=== PATIENT | male | born 1970 | race Caucasian/White ===

== ENCOUNTER 2024-11-02 22:59 | Inpatient (IN) | payer OTHER, SELFPAY ==
[2024-11-02 18:48] VITALS: BP 134/98
[2024-11-02 19:05] LABS: Urine Albumin 2+ (Neg - Trace); Urine Bilirubin Negative (Negative); Urine Character Slightly Cloudy (Clear); Urine Color Amber; Urine Glucose Negative (Negative); Urine Ketone Negative (Negative); Urine Leukocyte 1+ (Negative); Urine Nitrite Negative (Negative); Urine Occult Blood 4+ (Negative); Urine Urobilinogen Negative (Neg - 1+)
[2024-11-02 19:15] LABS: Urine Red Blood Cell >100 /HPF (0-2); Urine Squamous Cell None seen /LPF (Few)
[2024-11-02 19:23] VITALS: BMI 27.4
[2024-11-02 19:44] LABS: % Basophils 0.2 % (0-2); % Eosinophils 0.4 % (0-6); % Immature Granulocytes 0.4 % (0-0.5); % Lymphocytes 16.7 % (20.5-51.1); % Monocytes 6.7 % (1.7-9.3); % Neutrophils 75.6 % (42.2-75.2); Absolute Eosinophils 0.1 10^3/uL (0-0.7); Absolute Immature Granulocytes 0.1 10^3/uL (0-0.05); Absolute Lymphocytes 2.7 10^3/uL (1.2-3.4); Absolute Monocytes 1.1 10^3/uL (0.1-0.6); Absolute Neutrophils 12.2 10^3/uL (1.4-6.5); Hematocrit 39.9 % (39.0-52.0); Hemoglobin 14.2 g/dL (13.0-18.0); Mean Corp Hgb Conc. 35.6 g/dL (33.0-37.0); Mean Corpuscular Hgb 30.5 pg (27.0-31.0); Mean Corpuscular Volume 85.6 fL (80.0-94.0); Mean Platelet Volume 8.9 fL (7.4-10.4); Nucleated Red Blood Cells % 0 % (-); Platelet Count 310 10^3/uL (130-400); Red Blood Cell Count 4.66 10^6/uL (4.70-6.10); Red Cell Dist. Width 12.4 % (11.5-14.5); White Blood Cell Count 16.2 10^3/uL (4.8-10.8)
--- NOTE | 2024-11-02 19:49 | ED.GENMED ---
History of Present Illness
General
Chief Complaint: Flank Pain
Source: patient
Exam Limitations: none
Time Seen by Provider: 11/02/24 19:38
Nursing documentation reviewed up to this point in time: agreed with
History of Present Illness
History of Present Illness:
54-year-old male with past medical history of renal stones presents emergency department today with concerns of left-sided flank pain that started yesterday. Patient reports that this for started, he thought nothing of it and took some Tylenol and
used it this did not help with the pain. Patient reports that he had a [employer] cheeseburger and started to feel nauseous and had some vomiting. He went to bed that night and then woke up with more severe left-sided flank pain. He has any
hematuria. Denies any dysuria. He denies any fevers or chills. He states that he has had kidney since the past but states this feels different. He currently does not follow with a urologist. He denies any intra-abdominal surgeries.
Review of Systems
Review of Systems
All Other Systems: ROS reviewed and negative except as documented in HPI and ROS
Phy Exam
Physical Exam
Physical Exam:
General: Patient is well appearing and in no acute distress; non-toxic
Skin: Warm and dry, no rashes or lesions
Head: Normocephalic, atraumatic
Eyes: Sclera non-icteric. EOMs intact.
Cardiac: Regular rate and rhythm, no murmurs
Peripheral Vascular: No lower extremity swelling or edema
Pulm: Normal respiratory effort, no wheezes, rales, rhonchi
Abdomen: Left-sided abdominal tenderness and left CVA tenderness noted, no rebound tenderness, no guarding
Neuro: CN II-XII intact, no focal neurologic deficits.
Psychiatric: Appropriate mood and affect.
Course
Orders/Labs/Results
Orders:
Orders
11/02/24 18:55
Urinalysis Reflex To Culture Urgent
Date Specimen was Collected: 11/02/24
Time Specimen was Collected: 18:51
Urine Microscopic Reflex Cult Urgent
Urine Culture Urgent
ERNST Source: U
Specimen Description:
Date Specimen was Collected: 11/02/24
Time Specimen was Collected: 18:51
11/02/24 19:36
Complete Blood Count/With Diff Urgent
Comprehensive Metabolic Panel Urgent
11/02/24 19:56
CT Abd/pel Without Iv Or Oral Urgent
Comment:
Reason For Exam: left flank pain/abdominal pain
0.9% Sodium Chloride 1000 ml [Nss] 1,000 ml IV BOLUS
Ketorolac [Toradol] 15 mg IV NOW STA
Ondansetron Injectable [Zofran] 4 mg IV NOW STA
11/02/24 22:48
Admit/Transfer Patient As Directed
Co-Sign Provider:
Level of Care: Inpatient admission
Assign to:: Medical/Surgical
Physician / Group: Stephen Monge
Diagnosis: left ureteral calculus, right ureteral calculus, moderate left hydrouretero
Reason for Hospitalization: left ureteral calculus, right ureteral calculus, moderate left hydrouretero
Expected length of stay greater than two midnights?: Yes
ELOS- Estimated Length of Stay in days: 3
I certify the patient meets the requirements for IP care: Yes
PRN Pain Medication Management As Directed
May give lesser potent ordered pain med per pt: Yes
preference::
Protocol:: Medication orders for pain may be administered in a
manner that supports deferring to patient preference
when the pt is:
- Requesting an ordered lesser potent pain medication.
Least to most potent pain medications are defined
as: acetaminophen < NSAID < tramadol < opioids
(morphine, oxycodone, hydromorphone).
- Requesting a lesser dose of the same medication IF
ORDERED.
- Requesting a less intrusive route of administration
if both routes are prescribed by the provider (PO <
IV).
11/02/24 22:49
Code Status As Directed
Resuscitation Status: Full Code
11/02/24 23:00
Flush (0.9% Sodium Chloride) [Flush (Nss)] See Dose Instructions IV PER PROTOCOL
11/03/24 00:39
0.9% Sodium Chloride 1000 ml [Nss] 1,000 ml IV 125 mls/hr
Acetaminophen [Tylenol] 650 mg PO Q4HPRN PRN
HYDROmorphone [Dilaudid] 0.5 mg IV Q2HPRN PRN
Ondansetron Injectable [Zofran] 4 mg IV Q6HPRN PRN
Oxycodone/Acetaminophen [Percocet 5/325] 1 tablet PO Q4HPRN PRN
Oxycodone/Acetaminophen [Percocet 5/325] 2 tablet PO Q4HPRN PRN
11/03/24 00:39
UROLOGY CONSULT Routine
Consulting Provider: Salazar Shah
Was physician already notified: Yes
Activity As Directed
Activity Level: As Tolerated
Intake/ Output As Directed
Frequency: Per unit guidelines
Okay to Shower As Directed
Pneumatic Compression Sleeves As Directed
Type: Thigh high
Strain Urine As Directed
Vital Signs As Directed
Frequency: Per unit guidelines
DX Deep Vein Thrombosis Video Routine
11/03/24 Breakfast
NPO
Allow oral meds: Yes
Allow clear liquids: 4hrs prior to procedure
Comment: may have unrestricted clear liquid up to 4 hrs prior to scheduled procedure
Basic Metabolic Panel IN AM
Complete Blood Count/No Diff IN AM
11/03/24 Dinner
Regular
11/03/24 22:00
Tamsulosin [Flomax] 0.4 mg PO HS
Abnormal Lab Results
11/02/24 11/02/24
18:55 19:36
WBC 16.2 H 10^3/uL
(4.8-10.8)
RBC 4.66 L 10^6/uL
(4.70-6.10)
Abs Immat Gran (auto) 0.1 H 10^3/uL
(0-0.05)
Absolute Neuts (auto) 12.2 H 10^3/uL
(1.4-6.5)
Absolute Monos (auto) 1.1 H 10^3/uL
(0.1-0.6)
Neutrophils % 75.6 H %
(42.2-75.2)
Lymphocytes % 16.7 L %
(20.5-51.1)
Glucose 111 H mg/dl
(70-99)
Total Protein 8.7 H g/dl
(6.3-8.2)
Ur Occult Blood Reflex 4+ A
(Negative)
Leukocyte Esterase Rfl 1+ A
(Negative)
Urine RBC >100 A /HPF
(0-2)
Urine Albumin (Reflex) 2+ A
(Neg - Trace)
11/02/24 19:36
11/02/24 19:36
Vital Signs
Initial and Last Documented VS:
Initial Vital Signs
Temp Pulse Resp BP Pulse Ox
97.8 F 93 16 134/98 99
11/02/24 18:48 11/02/24 18:48 11/02/24 18:48 11/02/24 18:48 11/02/24 18:48
Last Documented Vital Signs
Temp Pulse Resp BP Pulse Ox
97.8 F 93 16 121/78 94
11/02/24 18:48 11/02/24 18:48 11/02/24 18:48 11/03/24 00:00 11/03/24 00:00
MDM/Problems Addressed
Differential Diagnosis Includes:
Differentials include nephrolithiasis, diverticulitis, aortic aneurysm, pyelonephritis
MDM/Problems Addressed:
54-year-old male presents emergency department today with concerns of left flank pain. He was found to have a 9 mm stone in the mid urethra with moderate hydronephrosis. No evidence of CASSANDRA. No evidence of UTI. Reviewed case with urologist
on-call. Because CT scan also notes a stone on the right proximal ureter, patient is not a good candidate for trial of outpatient passage as patient may become anuric should the right side obstructed as an outpatient as well. Patient will be
referred for admission. No indication for IV antibiotics at this time. Case discussed with attending ER physician.
*Pulse Oximetry
Patient hypoxic: no
*Critical Care Note
Total Time (30-74mins, 75-104mins- exclusive of procedures): Not Applicable
Data Reviewed
Review of Other/Old Records Reveals: Records (Reviewed [facility], no previous ER segmentation or discharge summaries in [facility] to review)
ED Attending Note
-
Portions of this chart may have been created with voice recognition software.� Occasional wrong word or��sound alike� substitutions may have occurred due to the inherent limitations of voice recognition software.
Discharge Plan
Departure
Patient Disposition: Admit
Date of Disposition: 11/02/24
Time of Disposition: 22:12
Admit to: Med/Surg
Presentation/result/management discussed w/ accepting MD/DO: Hospitalist
Patient with high blood pressure during this ER visit?: Yes
Condition: Good
Discharge Problem:
Left ureteral calculus
Interventions
Interventions:
*Risk Screen - Suicide Last Done: 11/02/24 19:23
*General Assessment Last Done: 11/02/24 19:23
*Neglect/Abuse Screening Last Done: 11/02/24 19:23
*ED- Fall Risk Assessment Last Done: 11/02/24 19:23
*ED COVID-19 Vaccine History Last Done: 11/02/24 19:23
XD-Uhctff-Dmrfmvdggm Assessment Last Done: 11/02/24 19:23
ED-Male Genitourinary Assessment Last Done: 11/02/24 19:23
[2024-11-02 20:00] VITALS: BP 136/93
[2024-11-02] MEDS: NSS 1000 IV (20:18)
[2024-11-02] MEDS: TORADOL 15 MG IV (20:18)
[2024-11-02] MEDS: ZOFRAN 4 MG IV (20:19)
[2024-11-02 20:46] LABS: ALT (SGPT) 31 U/L (0-50); AST (SGOT) 25 U/L (17-59); Albumin 4.9 g/dl (3.5-5.0); Alkaline Phosphatase 80 U/L (38-126); Blood Urea Nitrogen 15 mg/dl (9-20); Calcium 9.6 mg/dl (8.4-10.2); Carbon Dioxide 23 mmol/L (22-30); Chloride 105 mmol/L (98-107); Estimated Creatinine Clearance 74 ml/min; Glucose 111 mg/dl (70-99); Potassium 4.4 mmol/L (3.5-5.1); Sodium 141 mmol/L (135-145); Total Bilirubin 0.7 mg/dl (0.2-1.3); Total Protein 8.7 g/dl (6.3-8.2); eGFR > 60.00
[2024-11-02 21:58] VITALS: BP 116/81
[2024-11-02 22:00] VITALS: BP 120/82
--- NOTE | 2024-11-02 22:26 | HPS.HSE ---
Addendum entered and electronically signed by Stephen Monge DO 11/02/24 23:42:
Patient seen and examined independently. Agree with findings and plan as set forth by MARGO Holt.
Patient is a 54y M with [facility] significant fro prior kidney stones (remote past) who presents to ED complaining of L flank pain with N/V. Symptoms started yesterday afternoon. No fevers / chills. No dysuria. Evaluation in the ED reveals
bilateral ureteral stones - L > R with hydro on the L.
Ass:
Bilateral Ureteral Stones
Left Hydronephrosis secondary to the above
Plan:
Admit for further evaluation and treatment.
NPO, IVFs, pain control and antiemetics.
Strain urine. Tamsulosin.
Urology evaluation in AM for possible intervention.
Original Note:
Family Physician
-
Family Physician: * NONE
Chief Complaint
-
left flank pain
History of Present Illness
Patient is a 54-year-old male with past medical history significant for kidney stones who presented to [facility] ED for evaluation of left flank pain x2 days associated with vomiting. Patient reports he started with left flank pain described as sharp
yesterday, 11/01/2024, and has been consistent since. He reports an episode of emesis prior to ED arrival. Patient also reports increased frequency in urination, no dysuria. He stated he has history of kidney stones in the past. Denies any fever,
chills, cough, shortness of breath, nausea, constipation or diarrhea.
Medical History
Past Medical History
Past Medical History: Reports Other
Additional Past Medical History:
kidney stones
Past Surgical History: Reports None
Social History
Tobacco: Former Smoker
Alcohol: Occasional
Drug: None
Family History
Family History: Not pertinent
Allergies / Home Medications
Allergies reflects when Allergies were last updated in [employer].
Home Medications with original date entered in [employer]
Allergy/Medication List:
Allergies
Allergy/AdvReac Type Severity Reaction Status Date / Time
No Known Allergies Allergy Unverified 11/02/24 18:48
Review of Systems
-
History Source: Patient
Constitutional: Reports No Symptoms
EENT: Reports No Symptoms
Respiratory: Reports No Symptoms
Cardiac: Reports No Symptoms
Abdomen/GI: Reports Vomiting
: Reports Flank Pain (left )
Musculoskeletal: Reports No Symptoms
Skin: Reports No Symptoms
Neurological: Reports No Symptoms
Endocrine: Reports No Symptoms
Hematologic/Lymphatic: Reports No Symptoms
Psych: Reports No Symptoms
Physical Exam
Vital Signs
Vital Signs
Temp Pulse Resp BP Pulse Ox
97.8 F 93 16 120/82 97
11/02/24 18:48 11/02/24 18:48 11/02/24 18:48 11/02/24 22:00 11/02/24 22:00
Physical Exam
General: Well Developed, Well Nourished, No Apparent Distress and Conversant
HEENT: NormoCephalic, Moist mucous membranes, Atraumatic, [place] Conjunctivae, Nose Appears Normal and Ears Appear Normal
Respiratory: Clear
Cardiac: S1/S2 and Regular Rhythm
Breast: Deferred by me
GI: Soft, Non Tender, Non Distended and Normal Bowel Sounds; No Organomegaly
Rectal: Deferred by Provider
Genito-urinary: Costovertebral angle tend
Musculoskeletal: No Clubbing, No Cyanosis and No Edema
Skin: Warm and IV/Catheter Site
Neuro: Awake, Alert, AO x 3 and Nonfocal/grossly intact
Psych: Calm and Intact Judgment/Insight
Laboratory Results
-
11/02/24 19:36
11/02/24 19:36
Laboratory Results
Total Bilirubin 0.7 mg/dl (0.2-1.3) 11/02/24 19:36
AST 25 U/L (17-59) 11/02/24 19:36
ALT 31 U/L (0-50) 11/02/24 19:36
Alkaline Phosphatase 80 U/L (38-126) 11/02/24 19:36
Data Reviewed
-
CT Scan: Report Reviewed by me (Abd/Pel: 9 mm mid left ureteral calculus with associated moderate left hydroureteronephrosis. 4 mm proximal right ureteral calculus without significant right-sided hydroureteronephrosis.)
Lab Data: Labs Reviewed by me (WBC 16.2, Neut 75.6, )
Impression/Plan
-
IMPRESSION/PLAN:
#left flank pain x2 days with vomiting
#Hx kidney stones
WBC 16.2, Neut 75.6
Abd/Pel CT: 9 mm mid left ureteral calculus with associated moderate left hydroureteronephrosis.
4 mm proximal right ureteral calculus without significant right-sided hydroureteronephrosis.
- Admit to med/surg
- Consult Urology
- NPO for potential OR
- pain regimen
- antiemetics
Code status: full code
DVT prophylaxis: SCDs
[2024-11-02] MEDS: FLUSH (NSS) 1 FLUSH IV (22:41)
[2024-11-02 23:00] VITALS: BP 121/81
[2024-11-03] VITALS (12 sets, daily range): BP systolic 116–135; BP diastolic 73–90; BMI 27.0
[2024-11-03] MEDS: NSS 1000 IV ×3 (00:58→22:18)
--- NOTE | 2024-11-03 01:12 | PTCARENOTE ---
Pt adm to unit from ED, able to work from stretcher to bed independently, AAOX3 VSS denies pain or nausea @ this time, able to make needs known. Pt oriented to room and hospital policies. Pt educated on diet status and need to strain urine, call
cano within reach
[2024-11-03] MEDS: FLOMAX 0.4 MG PO ×2 (01:51→21:22)
--- NOTE | 2024-11-03 06:31 | PTCARENOTE ---
Pt slept well throughout shift, denies pain, voided for 200ml bladder scanned for 107 PVR
--- NOTE | 2024-11-03 07:00 | CONS.URO ---
Consultation
-
Performing Provider: Peffer
Reason for Consultation: b/l ureteral stones
Medical History
History of Present Illness
54M with past hx of kidney stones presented to ED with L flank pain
CT showed 6mm L and 4mm R ureteral stones
Making urine and afebrile/nontoxic
Admitted for management of bilateral stones
Past Medical History
Past Medical History: Other (kidney stones)
Social History
Tobacco: Former Smoker
Alcohol: Occasional
Family History
Family History: Reviewed & Not Pertinent
Allergies/Home Medications
Allergies
Allergy/AdvReac Type Severity Reaction Status Date / Time
No Known Allergies Allergy Unverified 11/02/24 18:48
Home Medications
�Medication �Instructions �Recorded �Confirmed �Type
No Meds [No Current Medications] 11/02/24 11/02/24 History
Physical Exam
Vital Signs
Vital Signs
Temp Pulse Resp BP Pulse Ox
98.2 F 68 16 135/85 97
11/03/24 00:35 11/03/24 00:35 11/03/24 00:35 11/03/24 00:35 11/03/24 00:35
Physical Exam
General: Well Developed, Well Nourished and No Apparent Distress
GI: Soft and Non Tender
Genito-urinary: No Costovertebral Tend
Neuro: AO x 3
Psych: Calm and Intact Judgement
Assessment / Plan
-
54M with bilateral ureteral stones
L>R hydro without ARF
- NPO for OR today - bilateral ureteral stent placement, possible ureteroscopy and laser lithotripsy
- Ceftriaxone for prophylaxis
- AM labs pending
[2024-11-03 07:25] LABS: Hematocrit 36.4 % (39.0-52.0); Hemoglobin 12.6 g/dL (13.0-18.0); Mean Corp Hgb Conc. 34.6 g/dL (33.0-37.0); Mean Corpuscular Hgb 30.3 pg (27.0-31.0); Mean Corpuscular Volume 87.5 fL (80.0-94.0); Mean Platelet Volume 9.6 fL (7.4-10.4); Platelet Count 255 10^3/uL (130-400); Red Blood Cell Count 4.16 10^6/uL (4.70-6.10); Red Cell Dist. Width 12.4 % (11.5-14.5); White Blood Cell Count 12.9 10^3/uL (4.8-10.8)
[2024-11-03 07:36] LABS: Blood Urea Nitrogen 18 mg/dl (9-20); Calcium 8.4 mg/dl (8.4-10.2); Carbon Dioxide 24 mmol/L (22-30); Chloride 107 mmol/L (98-107); Estimated Creatinine Clearance 88 ml/min; Glucose 101 mg/dl (70-99); Potassium 4.6 mmol/L (3.5-5.1); Sodium 141 mmol/L (135-145); eGFR > 60.00
[2024-11-03] MEDS: ROCEPHIN 1000 MG IV (07:51)
[2024-11-03] MEDS: STERILE WATER FOR INJECTION 10 ML IV (07:51)
[2024-11-03] MEDS: MIRALAX 17 GRAMS PO (10:35)
[2024-11-03] MEDS: TYLENOL 650 MG PO (11:18)
--- NOTE | 2024-11-03 12:43 | CM ---
Cm met with patient in room. Patient confirmed demographics. Patent lives independently. Patient does not have a history of VN, SNF or DME. Patient does not have a PCP. Patient wants to uses [facility] in [place]
Cm discuss medicaid application process and encouraged patient to participate with [facility] client service representative. CM will continue to follow for needs.
PLAN: home no needs.
[2024-11-03] MEDS: DILAUDID 0.5 MG IV (13:20)
--- NOTE | 2024-11-03 13:33 | W.PN.HOSP.TC ---
Today's Communication/Plan
-
Cystoscopy today
Assessment / Plan
Assessment / Plan
54-year-old with remote history of kidney stones presented to the hospital with left flank pain ER evaluation showed bilateral ureteral stones left more than right with hydro on the left.
CT A/P 9 mm mid left ureteral calculus with associated moderate left hydroureteronephrosis.4 mm proximal right ureteral calculus without significant right-sided hydroureteronephrosis.
CVS: S1-S2 normal
Chest: CTA B/L
Abdomen: Soft, Bowel sounds present, tenderness left side more than right
Extremities: No edema,
# Bilateral ureteral stones with left hydronephrosis
9 mm left ureteral stone and 4 mm right ureteral stone
N.p.o. with IV fluids
Pain control
Strain urine and also await urine culture
Flomax
Urology evaluation for cystoscopy/ureteroscopy TODAY
Ceftriaxone to be continued while waiting for cultures
# Ex-smoker
# DVT prophylaxis-SCDS
# Full code
D/W Rn AT BED SIDE
Anticipated Discharge: Within 24 hours
Subjective/Interval History
-
Date of Service: November 03, 2024
Objective Data
-
Labs:
Laboratory Results
11/03/24
06:08
WBC 12.9 H
Hgb 12.6 L
Hct 36.4 L
Plt Count 255
Sodium 141
Potassium 4.6
Chloride 107
Carbon Dioxide 24
BUN 18
Creatinine 1.0
Glucose 101 H
Calcium 8.4
Vital Signs:
Vital Signs
Temp Pulse Resp BP Pulse Ox
98.2 F 102 16 120/88 96
11/03/24 07:45 11/03/24 07:45 11/03/24 07:45 11/03/24 07:45 04/21/25 07:45
I&O
11/02/24 11/03/24 11/04/24
06:59 06:59 06:59
Intake Total 1050 / 1050
Output Total 200 / 200 770 / 770
Balance 850 / 850 -770 / -770
[2024-11-03] MEDS: TORADOL 15 MG IV (13:35)
--- NOTE | 2024-11-03 15:58 | PTCARENOTE ---
Patient ambulating to bathroom with a steady gait, all urine is being strained-no stones noted. Patient c/o left flank pain 8/, Dilaudid given. Physician at bedside and ordered Toradol. Toradol given. Patient is now sleeping with no s/s of
discomfort.
--- NOTE | 2024-11-03 17:00 | PTCARENOTE ---
Patient sent to OR. Report given to OR nurse. Pre op education reviewed with patient. Spouse at bedside.
[2024-11-03] MEDS: NSS IV (17:19)
--- NOTE | 2024-11-03 19:06 | W.SUR.POST ---
Surgical Immediate Post Op
Note
Pre Op Diagnosis: bilaterla ureteral obstruction 9mm left and 4 mm rt \\uretral stone stone
Post Op Diagnosis: same
Procedure bilateral ureteroscopy : left laser lithor=tripsy wit h basket extraction bilateral jj stents
Primary Surgeon: yanni
Secondary Surgeons:
Anesthesia:
general DR JUAN CARLOS
Estimated Blood Loss: 2
Fluids: NSS
Drains/Shunts: BILATERAL JJ STENTS
Specimens/Cultures: STONES
Doppler/Duplex/Angio (Y/N):
Complications: 0
Operative Findings: LG LEFT STONE GROUP SMALL STONES RT URETER
[2024-11-03] MEDS: Pyridium 200 MG PO (19:46)
--- NOTE | 2024-11-03 21:01 | PTCARENOTE ---
Received report from CLAY ROASTERJennie. Received pt s/p PACU in hospital bed; AAOx3, mildly drowsy but awakens easily, no complaints of pain. Arrives on 4L O2 NC, 95% on RA, lungs clear. Remainder of assessment as documented. Pt assist x1 to bathroom for
PM hygiene, no c/o pain/dizziness, steady gait. Voided 200cc bloody urine into the urinal. Reoriented to unit and call cano, resting comfortably at this time.
[2024-11-03] MEDS: SENOKOT 17.2 MG PO (21:22)
[2024-11-03] MEDS: COLACE 100 MG PO (21:22)
[2024-11-04] MEDS: Pyridium 200 MG PO ×2 (00:09→08:54)
[2024-11-04 03:10] VITALS: BP 124/83
[2024-11-04 07:00] LABS: Hematocrit 40.1 % (39.0-52.0); Hemoglobin 13.5 g/dL (13.0-18.0); Mean Corp Hgb Conc. 33.7 g/dL (33.0-37.0); Mean Corpuscular Hgb 29.7 pg (27.0-31.0); Mean Corpuscular Volume 88.1 fL (80.0-94.0); Mean Platelet Volume 9.7 fL (7.4-10.4); Platelet Count 281 10^3/uL (130-400); Red Blood Cell Count 4.55 10^6/uL (4.70-6.10); Red Cell Dist. Width 12.2 % (11.5-14.5); White Blood Cell Count 9.8 10^3/uL (4.8-10.8)
[2024-11-04 07:10] VITALS: BP 133/84
[2024-11-04 07:17] LABS: Blood Urea Nitrogen 15 mg/dl (9-20); Calcium 9.2 mg/dl (8.4-10.2); Carbon Dioxide 24 mmol/L (22-30); Chloride 109 mmol/L (98-107); Estimated Creatinine Clearance 110 ml/min; Glucose 138 mg/dl (70-99); Potassium 5.1 mmol/L (3.5-5.1); Sodium 143 mmol/L (135-145); eGFR > 60.00
[2024-11-04] MEDS: COLACE 100 MG PO (08:54)
[2024-11-04] MEDS: STERILE WATER FOR INJECTION 10 ML IV (08:54)
[2024-11-04] MEDS: MIRALAX 17 GRAMS PO (08:54)
[2024-11-04] MEDS: ROCEPHIN 1000 MG IV (08:54)
[2024-11-04] MEDS: SENOKOT 17.2 MG PO (08:54)
--- NOTE | 2024-11-04 10:16 | W.PN.URO.CBU ---
Today's Communication / Plan
-
d/c if ok hospitalist
Assessment / Plan
-
d/c if ok by hospitalist
Diagnosis
-
Date of Service: November 04, 2024
-
Patient Diagnosis:bilateral uretal stone s./ p lithotripsy and jj stents
Post Op Day:
Subjective
-
much better today
Objective
-
Vital Signs
Temp Pulse Resp BP Pulse Ox
98.0 F 80 16 133/84 95
11/04/24 07:10 11/04/24 07:10 11/04/24 07:10 11/04/24 07:10 11/04/24 07:10
Intake and Output
11/03/24 11/04/24 11/05/24
06:59 06:59 06:59
Intake Total 1050 / 1050 200 / 200 480 / 480
Output Total 200 / 200 1994
Balance 850 / 850 -1795 / -1795 480 / 480
Intake:
Oral fluids 300 / 300 100 / 100 480 / 480
IV fluids (Total) 750 / 750 100 / 100
Normosol 100 / 100
Output:
Urine, Voided 200 / 200 1994
Other:
Number of approximated MODERATE 2
amounts of urine
Laboratory Results
11/04/24 05:37
11/04/24 05:37
Review of Systems
-
: Urgency and Dark Urine
Physical Exam
-
General - well developed, well nourished, no acute distress
Chest - clear bilaterally
Abdomen - soft, non-tender, positive bowel sounds, no CVAT, no incisional pain or distention
Genitalia - normal
Rectal - normal
Skin - warm & dry with no rash
Neuro - AOx3, no motor deficits
Extremities - no clubbing, no cyanosis, no edema
Incision - clean, dry
Dressing - clean, dry, intact
Care Review
Data Reviewed
Discussed with: Hospitalist and Nursing
[2024-11-04 10:40] VITALS: BP 129/86
--- NOTE | 2024-11-04 11:48 | W.PN.HOSP.TC ---
Today's Communication/Plan
-
Discharge
Assessment / Plan
Assessment / Plan
54-year-old with remote history of kidney stones presented to the hospital with left flank pain ER evaluation showed bilateral ureteral stones left more than right with hydro on the left.
CT A/P 9 mm mid left ureteral calculus with associated moderate left hydroureteronephrosis.4 mm proximal right ureteral calculus without significant right-sided hydroureteronephrosis.
CVS: S1-S2 normal
Chest: CTA B/L
Abdomen: Soft, Bowel sounds present, no pain or tenderness
Extremities: No edema,
# Bilateral ureteral stones with left hydronephrosis
9 mm left ureteral stone and 4 mm right ureteral stone
Status post left ureteroscopy laser lithotripsy of large stone appears to be uric acid. Basket extraction of the Propulsid pieces. Left double-J stent. Right ureteroscopy right double-J stent placement
Keflex for 5 more days at discharge per discussion with urology
Stone alliances pending
# History of gout-with current stone site discussed about starting allopurinol. Patient stated that he does not have insurance at this point and should get insurance in the next few days and he will follow-up with his PCP.
# Ex-smoker
# DVT prophylaxis-SCDS
# Full code
D/W Rn AT BED SIDE
Discussed with urology
Patient is aware that hemoglobin A1c is pending and he needs to follow-up with PCP for the results and he is aware that this is for diabetes. He is also aware about starting treatment for gout as outpatient.
Patient also made aware that he needs to follow-up with Dr. Warren for stent removal.
Anticipated Discharge: Today
Subjective/Interval History
-
Date of Service: November 04, 2024
Objective Data
-
Labs:
Laboratory Results
11/04/24
05:37
WBC 9.8
Hgb 13.5
Hct 40.1
Plt Count 281
Sodium 143
Potassium 5.1
Chloride 109 H
Carbon Dioxide 24
BUN 15
Creatinine 0.8
Glucose 138 H
Calcium 9.2
Vital Signs:
Vital Signs
Temp Pulse Resp BP Pulse Ox
98.1 F 90 16 129/86 96
11/04/24 10:40 11/04/24 10:40 11/04/24 10:40 11/04/24 10:40 11/04/24 10:40
I&O
11/03/24 11/04/24 11/05/24
06:59 06:59 06:59
Intake Total 1050 / 1050 200 / 200 480 / 480
Output Total 200 / 200 1994
Balance 850 / 850 -1795 / -1795 480 / 480
--- NOTE | 2024-11-04 11:51 | W.DS.TRANS ---
Addendum entered and electronically signed by Shelley Al MD 11/04/24 15:55:
Dictation- [id number]
Original Note:
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
-
Discharge Instructions:
Discharge Diagnosis/Procedures bilateral ureteral stones with left
hydronephrosis status post bilateral stent
placement
Diet As tolerated
Activity As tolerated
Driving Restrictions As prior to admission
Instructions:
Stand-Alone Forms:
Changes to Home Medications: Yes
Discharge Medications:
DC Medications w/original date entered in [facility]
cephalexin 500 mg capsule 500 mg PO Q6H Urinary issue #16 caps 11/04/24
Home Medication Changes
above new
Pending Results: Yes
Additional Pending Results:
stone analysis
--- NOTE | 2024-11-04 11:57 | CM ---
CM following re: discharge planning.
Reviewed pt's chart, met with pt.
Discharge order noted. pt is aware, expressed his agreement with discharge.
Pt reports he met with Medicaid specialist Ariadna and provided all necessary financial information. Pt reports he got a new job and after 35 days will have insurance. Pt reports he has 2 adult children, his fiance has 3 children and they are
planning to live together.
No after care VN services indicated.
D/C plan: home no needs.
[2024-11-04 14:20] LABS: Glycohemoglobin (HgbA1c) 5.3 % (4.0-5.6)
[2024-11-06 19:29] LABS: Stone Analysis Mass 14 mg
== END 2024-11-04 14:24 | disposition home or self-care (01) | DRG 661 ==
LOC: 2 SOUTH 22:59
PROVIDERS: Nurse Practitioner Family; Specialist; ADMITTING PHYSICIAN Hospitalist; ATTENDING PHYSICIAN Hospitalist; CONSULT PHYSICIAN Urology; EMERGENCY PHYSICIAN Emergency Medicine
PROC: 0TC78ZZ Extirpation of Matter from Left Ureter, Via Natural or Artificial Opening Endoscopic (ICD-10-PCS; 2024-11-03)
PROC: 0T788DZ Dilation of Bilateral Ureters with Intraluminal Device, Via Natural or Artificial Opening Endoscopic (ICD-10-PCS; 2024-11-03)
DX: N13.2 Hydronephrosis with renal and ureteral calculous obstruction (principal); N21.0 Calculus in bladder; Z87.442 Personal history of urinary calculi; Z87.891 Personal history of nicotine dependence; Z59.71 Insufficient health insurance coverage
CPT/HCPCS: 74018; 74176; 76000; 80048; 80053; 81003; 81015; 82365; 83036; 85025; 85027; 87086; 96361; 96374; 96375; 99285; C1894; C2617